=== PATIENT | male | born 1945 | race Two or more races ===

== ENCOUNTER 2022-05-31 05:35 | Inpatient (IN) | payer MEDICARE, MEDICAID ==
[~2022-05-31] VITALS: Ht 188 cm; Wt 106.1 kg
[2022-05-31 06:54] LABS: Basophils # (auto) 0 10 ^3/uL (0-0.2); Basophils % (auto) 0.5 % (0.0-2.0); Eosinophils # (auto) 0 10 ^3/uL (0-0.8); Hematocrit 39.3 % (41.0-53.0); Hemoglobin 12.5 g/dL (13.5-17.5); Lymphocytes # (auto) 0.6 10 ^3/uL (0.4-5.4); Lymphocytes % (auto) 8.1 % (10.0-50.0); Mean Corpuscular Hemoglobin 28.8 pg (28.0-32.0); Mean Corpuscular Hgb Conc. 31.8 g/dL (32.0-36.0); Mean Corpuscular Volume 90.6 fL (80.0-100.0); Monocytes # (auto) 0.5 10 ^3/uL (0-1.3); Monocytes % (auto) 6.6 % (0.0-12.0); Neutrophils # (auto) 6.5 10 ^3/uL (1.6-8.6); Neutrophils % (auto) 84.8 % (37.0-80.0); Nucleated Red Blood Cells % 0.1 %; Red Blood Cells 4.33 10^6/uL (4.5-5.90); Red Cell Distribution Width 20.2 % (11.8-14.3); White Blood Cell 7.6 10^3/uL (4.4-10.8)
[2022-05-31 07:32] LABS: Calcium 8.5 mg/dL (8.5-10.1)
[2022-05-31 07:38] LABS: Albumin 3.4 g/dL (3.4-5.0); BUN/Creatinine Ratio 39.4; Total Protein 7.7 g/dL (6.4-8.2)
[2022-05-31 07:45] LABS: Potassium 6.9 mmol/L (3.5-5.1)
[2022-05-31] MEDS ORDERED: NITROGLYCERIN 50MG/250ML 250 ML IV ONE (09:00)
[2022-05-31] MEDS ORDERED: InsuLIN REG 1unit/0.01ml Soln (100units/ml) IV ONE ×2 (09:00→16:15)
[2022-05-31] MEDS ORDERED: FUROSEMIDE 100 MG/10ML VIAL IV ONE ×2 (09:00→16:15)
[2022-05-31] MEDS ORDERED: DEXTROSE (50%) 50ML SYRG IV ONE ×2 (09:00→16:15)
[2022-05-31] MEDS ORDERED: SODIUM BICARBONATE 8.4% INJ 50ML SYRINGE IV ONE (09:00)
[2022-05-31] MEDS ORDERED: SODIUM ZIRCONIUM CYCL 10 GM PAK PO ONE (09:00)
[2022-05-31] MEDS ORDERED: CALCIUM GLUC 1,000mg/50ml-NS 50 ML IV ONE ×3 (09:00→22:30)
[2022-05-31] MEDS: NOREPINEPHRINE 8 MG/250ML KIT 250 ML IV SCH (09:47)
[2022-05-31] MEDS: MORPHINE SULFATE 4 MG/ML SYR/VIAL IV SCH ×3 (10:00→17:26)
[2022-05-31] MEDS ORDERED: SODIUM CHL 0.9% 1000 ML BAG XX ONE (10:15)
[2022-05-31 10:40] VITALS: BP 103/71
[2022-05-31] MEDS ORDERED: MORPHINE SULFATE INJ 2 MG/ml SYRG IV PRN (11:30)
[2022-05-31] MEDS ORDERED: NITROGLYCERIN 0.4 MG SL TAB SL PRN (11:30)
[2022-05-31] MEDS ORDERED: HEPARIN SODIUM (PORCINE) 5000 UNITS/ML 1ML VIAL SC ONE (11:30)
[2022-05-31 11:56] LABS: % Iron Saturation 15.5 % (20-55)
[2022-05-31 12:00] VITALS: BP 122/68
[2022-05-31] MEDS ORDERED: methylPREDNISolone SOD SUCC 125 MG/2 ML VL IV ONE (12:15)
[2022-05-31] MEDS ORDERED: IPRATROPIUM BROM 0.5 MG/2.5ML INH SOL NEB PRN (12:15)
[2022-05-31] MEDS ORDERED: ALBUTEROL SULF 2.5 MG/0.5ML(0.5%) NEB SOLN NEB PRN (12:15)
[2022-05-31 13:12] LABS: Cholesterol 144 mg/dL (< 200); HDL Cholesterol 54 mg/dL (40-59); LDL Cholesterol 87 mg/dL (< 100); Triglycerides 54 mg/dL (< 150)
[2022-05-31 13:26] VITALS: BP 122/68
[2022-05-31] MEDS ORDERED: ALBUTEROL SULF 2.5 MG/0.5ML(0.5%) NEB SOLN NEB ONE (16:15)
[2022-05-31] MEDS ORDERED: SODIUM BICARBONATE 8.4 % INJ 50ML VIAL IV ONE ×2 (16:15→22:30)
[2022-05-31 17:10] LABS: Potassium 6.1 mmol/L (3.5-5.1)
[2022-05-31] MEDS: SODIUM ZIRCONIUM CYCL 10 GM PAK PO SCH (17:24)
[2022-05-31 19:05] LABS: BUN/Creatinine Ratio 38.2; Calcium 8.3 mg/dL (8.5-10.1)
[2022-05-31] MEDS: ALBUTEROL SULF 2.5 MG/0.5ML(0.5%) NEB SOLN NEB SCH (19:39)
[2022-05-31] MEDS: IPRATROPIUM BROM 0.5 MG/2.5ML INH SOL NEB SCH (19:40)
[2022-05-31 20:59] LABS: Urine Bacteria FEW /hpf (None Seen); Urine Blood TRACE /uL (Negative); Urine Hyaline Cast FEW /lpf (0 - 2); Urine Specific Gravity 1.007 (1.001-1.035); Urine WBC 5 /hpf (0 - 3)
[2022-05-31] MEDS ORDERED: EPOETIN ALFA-EPBX 10,000 UNIT/1ML VIAL SC ONE (21:00)
[2022-06-01] VITALS (17 sets, daily range): BP systolic 99–135; BP diastolic 60–93
[2022-06-01] MEDS: DOXYCYCLINE 100 MG TAB/CAP PO SCH ×3 (01:42→22:32)
[2022-06-01] MEDS: MORPHINE SULFATE 4 MG/ML SYR/VIAL IV SCH ×5 (02:00→18:00)
[2022-06-01] MEDS: SODIUM ZIRCONIUM CYCL 10 GM PAK PO SCH ×4 (02:02→22:32)
[2022-06-01] MEDS: HEPARIN SODIUM (PORCINE) 5000 UNITS/ML 1ML VIAL SC SCH ×2 (02:45→10:00)
[2022-06-01 05:21] LABS: Basophils # (auto) 0 10 ^3/uL (0-0.2); Basophils % (auto) 0.1 % (0.0-2.0); Eosinophils # (auto) 0 10 ^3/uL (0-0.8); Hematocrit 29.6 % (41.0-53.0); Hemoglobin 9.9 g/dL (13.5-17.5); Lymphocytes # (auto) 0.3 10 ^3/uL (0.4-5.4); Lymphocytes % (auto) 9.5 % (10.0-50.0); Mean Corpuscular Hemoglobin 29.8 pg (28.0-32.0); Mean Corpuscular Hgb Conc. 33.4 g/dL (32.0-36.0); Mean Corpuscular Volume 89.3 fL (80.0-100.0); Monocytes # (auto) 0.1 10 ^3/uL (0-1.3); Monocytes % (auto) 1.4 % (0.0-12.0); Neutrophils # (auto) 3.2 10 ^3/uL (1.6-8.6); Nucleated Red Blood Cells % 0.1 %; Red Blood Cells 3.31 10^6/uL (4.5-5.90); Red Cell Distribution Width 19.9 % (11.8-14.3); White Blood Cell 3.5 10^3/uL (4.4-10.8)
[2022-06-01 05:38] LABS: Albumin 2.6 g/dL (3.4-5.0); Calcium 7.8 mg/dL (8.5-10.1); Potassium 4.9 mmol/L (3.5-5.1)
[2022-06-01 05:42] LABS: BUN/Creatinine Ratio 36.4; Bilirubin, Total 0.7 mg/dL (0.2-1.0); Phosphorus 5.3 mg/dL (2.5-4.90); Total Protein 6.2 g/dL (6.4-8.2)
[2022-06-01] MEDS: ALBUTEROL SULF 2.5 MG/0.5ML(0.5%) NEB SOLN NEB SCH ×3 (06:14→18:27)
[2022-06-01] MEDS: IPRATROPIUM BROM 0.5 MG/2.5ML INH SOL NEB SCH ×2 (06:14→12:00)
[2022-06-01] MEDS ORDERED: SODIUM CHL 0.9% 1000 ML BAG XX ONE (07:00)
[2022-06-01] MEDS: DOPamine 1600MCG/ML D5W 250 ML IV SCH (08:57)
[2022-06-01] MEDS: NOREPINEPHRINE 8 MG/250ML KIT 250 ML IV SCH (09:30)
[2022-06-01] MEDS ORDERED: ATO40T PO (09:47)
[2022-06-01] MEDS ORDERED: BUME1TAB25 PO (09:52)
[2022-06-01] MEDS ORDERED: CARV3.1240 PO (09:54)
[2022-06-01] MEDS ORDERED: CLON0.1D TD (09:58)
[2022-06-01] MEDS ORDERED: CRAN425C2 OR (09:59)
[2022-06-01] MEDS ORDERED: DOCU100T15 PO (10:01)
[2022-06-01] MEDS ORDERED: APIX5TAB PO (10:02)
[2022-06-01] MEDS ORDERED: FERR-20 PO (10:04)
[2022-06-01] MEDS ORDERED: INSU100I43 SC (10:06)
[2022-06-01] MEDS ORDERED: INSLANTI SC (10:09)
[2022-06-01] MEDS ORDERED: LEVO25TA6 PO (10:10)
[2022-06-01] MEDS ORDERED: MAGNSUS48 PO (10:12)
[2022-06-01] MEDS ORDERED: MULTTAB75 PO (10:13)
[2022-06-01] MEDS ORDERED: HYDR-4902 PO (10:15)
[2022-06-01] MEDS ORDERED: OMEP20TA PO (10:16)
[2022-06-01] MEDS ORDERED: POTA10TA51 PO (10:18)
[2022-06-01] MEDS ORDERED: LACT1CAP14 PO (10:19)
[2022-06-01] MEDS ORDERED: SENN-36 PO (10:20)
[2022-06-01] MEDS ORDERED: SODI650T PO (10:22)
[2022-06-01] MEDS ORDERED: ASCO500C49 PO (10:23)
[2022-06-01] MEDS ORDERED: VITA400T4 PO (10:25)
[2022-06-01] MEDS ORDERED: ZINC220C8 PO (10:26)
[2022-06-01] MEDS ORDERED: BISA10SU5 RE (10:31)
[2022-06-01] MEDS ORDERED: DESMOPRESSIN INJECTION 20 MCG in SODIUM CHL 0.9% 50 ML IV ONE (10:45)
[2022-06-01] MEDS ORDERED: DEXTROSE (50%) 50ML SYRG IV PRN (10:45)
[2022-06-01] MEDS ORDERED: LEVOTHYROXINE SODIUM 25 MCG TAB PO ONE (10:45)
[2022-06-01] MEDS ORDERED: PANTOPRAZOLE 40 MG TAB PO ONE (10:45)
[2022-06-01] MEDS: InsuLIN REG 1unit/0.01ml Soln (100units/ml) SC SCH ×2 (12:00→17:00)
[2022-06-01] MEDS: ACCU-CHEK COMFORT CURVE STRIP VI SCH ×2 (12:00→17:00)
[2022-06-01] MEDS ORDERED: EPOETIN ALFA-EPBX 10,000 UNIT/1ML VIAL SC ONE (13:30)
[2022-06-01 13:37] LABS: Hepatitis A Ab IgM Negative; Hepatitis B Core IgM Negative; Hepatitis C Antibody Negative (Negative)
[2022-06-01] MEDS ORDERED: ONDANSETRON HCL 4 MG/2 ML VIAL IV PRN (14:45)
[2022-06-01] MEDS ORDERED: FUROSEMIDE 40 MG/4 ML VIAL IV ONE (14:45)
[2022-06-01 16:15] LABS: Hematocrit 39.9 % (41.0-53.0)
[2022-06-01 16:26] LABS: INR 1.25 (0.9-1.15); Partial Thromboplastin Time 26.4 sec (24.6-33.4)
[2022-06-01 16:27] LABS: Hemoglobin 12.6 g/dL (13.5-17.5)
[2022-06-02] VITALS (30 sets, daily range): BP systolic 90–131; BP diastolic 56–73
[2022-06-02] MEDS: ACCU-CHEK COMFORT CURVE STRIP VI SCH ×5 (00:25→23:13)
[2022-06-02] MEDS: MORPHINE SULFATE 4 MG/ML SYR/VIAL IV SCH ×5 (02:00→18:00)
[2022-06-02] MEDS: InsuLIN REG 1unit/0.01ml Soln (100units/ml) SC SCH ×5 (06:00→23:13)
[2022-06-02] MEDS: IPRATROPIUM BROM 0.5 MG/2.5ML INH SOL NEB SCH ×3 (06:10→18:24)
[2022-06-02] MEDS: ALBUTEROL SULF 2.5 MG/0.5ML(0.5%) NEB SOLN NEB SCH ×3 (06:10→18:24)
[2022-06-02] MEDS: DOPamine 1600MCG/ML D5W 250 ML IV SCH ×2 (06:30→12:24)
[2022-06-02 07:38] LABS: Basophils # (auto) 0 10 ^3/uL (0-0.2); Basophils % (auto) 0.3 % (0.0-2.0); Eosinophils # (auto) 0 10 ^3/uL (0-0.8); Eosinophils % (auto) 0.1 % (0.0-7.0); Hematocrit 32.9 % (41.0-53.0); Hemoglobin 10.5 g/dL (13.5-17.5); Lymphocytes # (auto) 0.7 10 ^3/uL (0.4-5.4); Lymphocytes % (auto) 7.4 % (10.0-50.0); Mean Corpuscular Hemoglobin 28.9 pg (28.0-32.0); Mean Corpuscular Hgb Conc. 31.9 g/dL (32.0-36.0); Mean Corpuscular Volume 90.5 fL (80.0-100.0); Monocytes # (auto) 0.6 10 ^3/uL (0-1.3); Monocytes % (auto) 6.8 % (0.0-12.0); Neutrophils # (auto) 7.8 10 ^3/uL (1.6-8.6); Neutrophils % (auto) 85.4 % (37.0-80.0); Red Blood Cells 3.63 10^6/uL (4.5-5.90); Red Cell Distribution Width 19.9 % (11.8-14.3); White Blood Cell 9.2 10^3/uL (4.4-10.8)
[2022-06-02 07:58] LABS: INR 1.2 (0.9-1.15); Partial Thromboplastin Time 29.5 sec (24.6-33.4)
[2022-06-02 08:00] LABS: Albumin 2.9 g/dL (3.4-5.0); Potassium 4.4 mmol/L (3.5-5.1)
[2022-06-02 08:01] LABS: % Iron Saturation 14.9 % (20-55)
[2022-06-02 08:03] LABS: BUN/Creatinine Ratio 32.4; Total Protein 6.6 g/dL (6.4-8.2)
[2022-06-02] MEDS: LEVOTHYROXINE SODIUM 25 MCG TAB PO SCH (08:52)
[2022-06-02] MEDS: SODIUM ZIRCONIUM CYCL 10 GM PAK PO SCH ×3 (08:52→22:55)
[2022-06-02] MEDS ORDERED: DESMOPRESSIN INJECTION 20 MCG in SODIUM CHL 0.9% 50 ML IV ONE (10:00)
[2022-06-02] MEDS: PANTOPRAZOLE 40 MG TAB PO SCH (10:00)
[2022-06-02] MEDS ORDERED: FUROSEMIDE 100 MG/10ML VIAL IV SCH (10:00)
[2022-06-02] MEDS: DOXYCYCLINE 100 MG TAB/CAP PO SCH ×2 (10:00→23:13)
[2022-06-02] MEDS ORDERED: LIDOCAINE 2% (LOCAL ANESTH.) PF 5ml SDV ONE (11:18)
[2022-06-02] MEDS: SODIUM FERR GLUC 62.5MG/5ML 125 MG in SODIUM CHL 0.9% 100 ML IV SCH (15:19)
[2022-06-02] MEDS: FUROSEMIDE 100 MG/10ML VIAL IV SCH ×2 (15:20→22:55)
[2022-06-03] VITALS (26 sets, daily range): BP systolic 101–128; BP diastolic 59–77
[2022-06-03] MEDS: MORPHINE SULFATE 4 MG/ML SYR/VIAL IV SCH ×2 (02:00→05:26)
[2022-06-03 04:54] LABS: Basophils # (auto) 0 10 ^3/uL (0-0.2); Basophils % (auto) 0.2 % (0.0-2.0); Eosinophils # (auto) 0 10 ^3/uL (0-0.8); Eosinophils % (auto) 0.2 % (0.0-7.0); Hematocrit 29.1 % (41.0-53.0); Hemoglobin 9.5 g/dL (13.5-17.5); Lymphocytes # (auto) 1.2 10 ^3/uL (0.4-5.4); Lymphocytes % (auto) 15.8 % (10.0-50.0); Mean Corpuscular Hemoglobin 28.9 pg (28.0-32.0); Mean Corpuscular Hgb Conc. 32.6 g/dL (32.0-36.0); Mean Corpuscular Volume 88.7 fL (80.0-100.0); Monocytes # (auto) 0.7 10 ^3/uL (0-1.3); Monocytes % (auto) 9.9 % (0.0-12.0); Neutrophils # (auto) 5.6 10 ^3/uL (1.6-8.6); Neutrophils % (auto) 73.9 % (37.0-80.0); Red Blood Cells 3.28 10^6/uL (4.5-5.90); Red Cell Distribution Width 19.8 % (11.8-14.3); White Blood Cell 7.5 10^3/uL (4.4-10.8)
[2022-06-03 05:04] LABS: Albumin 2.7 g/dL (3.4-5.0); Calcium 7.4 mg/dL (8.5-10.1); Potassium 3.7 mmol/L (3.5-5.1)
[2022-06-03 05:08] LABS: Bilirubin, Total 0.9 mg/dL (0.2-1.0)
[2022-06-03] MEDS: ACCU-CHEK COMFORT CURVE STRIP VI SCH ×4 (05:24→23:37)
[2022-06-03] MEDS: InsuLIN REG 1unit/0.01ml Soln (100units/ml) SC SCH ×4 (05:25→23:37)
[2022-06-03] MEDS: SODIUM ZIRCONIUM CYCL 10 GM PAK PO SCH (05:25)
[2022-06-03] MEDS: FUROSEMIDE 100 MG/10ML VIAL IV SCH ×2 (05:26→23:12)
[2022-06-03] MEDS: LEVOTHYROXINE SODIUM 25 MCG TAB PO SCH (06:36)
[2022-06-03] MEDS: DOXYCYCLINE 100 MG TAB/CAP PO SCH ×2 (10:00→23:12)
[2022-06-03] MEDS: PANTOPRAZOLE 40 MG TAB PO SCH (10:00)
[2022-06-03] MEDS ORDERED: MORPHINE SULFATE INJ 2 MG/ml SYRG IV PRN (10:30)
[2022-06-03] MEDS ORDERED: HYDROcodone-ACET 5/325MG TAB PO PRN (10:30)
[2022-06-03 11:15] LABS: Basophils # (auto) 0 10 ^3/uL (0-0.2); Basophils % (auto) 0.2 % (0.0-2.0); Eosinophils # (auto) 0 10 ^3/uL (0-0.8); Eosinophils % (auto) 0.2 % (0.0-7.0); Hematocrit 30.6 % (41.0-53.0); Hemoglobin 9.8 g/dL (13.5-17.5); Lymphocytes # (auto) 0.6 10 ^3/uL (0.4-5.4); Lymphocytes % (auto) 9.4 % (10.0-50.0); Mean Corpuscular Hemoglobin 28.7 pg (28.0-32.0); Mean Corpuscular Hgb Conc. 31.9 g/dL (32.0-36.0); Monocytes # (auto) 0.6 10 ^3/uL (0-1.3); Monocytes % (auto) 8.3 % (0.0-12.0); Neutrophils # (auto) 5.6 10 ^3/uL (1.6-8.6); Neutrophils % (auto) 81.9 % (37.0-80.0); White Blood Cell 6.8 10^3/uL (4.4-10.8)
[2022-06-03 11:16] LABS: Red Cell Distribution Width 20.2 % (11.8-14.3)
[2022-06-03] MEDS: SODIUM FERR GLUC 62.5MG/5ML 125 MG in SODIUM CHL 0.9% 100 ML IV SCH (12:30)
[2022-06-03] MEDS: IPRATROPIUM BROM 0.5 MG/2.5ML INH SOL NEB SCH (19:05)
[2022-06-03] MEDS: ALBUTEROL SULF 2.5 MG/0.5ML(0.5%) NEB SOLN NEB SCH (19:05)
[2022-06-03] MEDS: DOPamine 1600MCG/ML D5W 250 ML IV SCH (23:33)
[2022-06-04 05:00] VITALS: BP 119/68
[2022-06-04] MEDS: InsuLIN REG 1unit/0.01ml Soln (100units/ml) SC SCH ×4 (06:00→22:53)
[2022-06-04] MEDS: ACCU-CHEK COMFORT CURVE STRIP VI SCH ×4 (06:03→22:39)
[2022-06-04] MEDS: LEVOTHYROXINE SODIUM 25 MCG TAB PO SCH (06:05)
[2022-06-04] MEDS: ALBUTEROL SULF 2.5 MG/0.5ML(0.5%) NEB SOLN NEB SCH ×3 (06:14→18:07)
[2022-06-04] MEDS: IPRATROPIUM BROM 0.5 MG/2.5ML INH SOL NEB SCH ×3 (06:14→18:07)
[2022-06-04 06:41] LABS: BUN/Creatinine Ratio 30.8; Calcium 7.9 mg/dL (8.5-10.1); Potassium 3.5 mmol/L (3.5-5.1)
[2022-06-04 09:00] VITALS: BP 131/70
[2022-06-04] MEDS ORDERED: LEV25T PO (10:08)
[2022-06-04] MEDS: PANTOPRAZOLE 40 MG TAB PO SCH (10:08)
[2022-06-04] MEDS: DOXYCYCLINE 100 MG TAB/CAP PO SCH ×2 (10:08→22:39)
[2022-06-04] MEDS ORDERED: DOX100T PO (10:08)
[2022-06-04] MEDS: FUROSEMIDE 100 MG/10ML VIAL IV SCH ×2 (10:09→22:39)
[2022-06-04] MEDS: SODIUM FERR GLUC 62.5MG/5ML 125 MG in SODIUM CHL 0.9% 100 ML IV SCH (12:19)
[2022-06-04 13:00] VITALS: BP 115/71
[2022-06-04] MEDS: ERTAPENEM SOD INJ 1 GM in SODIUM CHL 0.9% 50 ML IV ONE ×2 (15:28→15:58)
[2022-06-04 17:00] VITALS: BP 107/69
[2022-06-04 22:00] VITALS: BP 101/68
[2022-06-05] VITALS (7 sets, daily range): BP systolic 101–112; BP diastolic 62–71
[2022-06-05] MEDS: ACCU-CHEK COMFORT CURVE STRIP VI SCH ×3 (05:27→17:57)
[2022-06-05] MEDS: LEVOTHYROXINE SODIUM 25 MCG TAB PO SCH (05:28)
[2022-06-05] MEDS: InsuLIN REG 1unit/0.01ml Soln (100units/ml) SC SCH ×3 (05:32→17:58)
[2022-06-05 06:20] LABS: BUN/Creatinine Ratio 28.2; Calcium 7.6 mg/dL (8.5-10.1); Potassium 3.4 mmol/L (3.5-5.1)
[2022-06-05] MEDS: ALBUTEROL SULF 2.5 MG/0.5ML(0.5%) NEB SOLN NEB SCH ×3 (07:16→19:15)
[2022-06-05] MEDS: IPRATROPIUM BROM 0.5 MG/2.5ML INH SOL NEB SCH ×3 (07:16→19:15)
[2022-06-05] MEDS ORDERED: POTASSIUM CHL 20 Meq TABLET PO ONE (10:15)
[2022-06-05] MEDS: ERTAPENEM SOD INJ 1 GM in SODIUM CHL 0.9% 50 ML IV SCH (11:57)
[2022-06-05] MEDS: FUROSEMIDE 100 MG/10ML VIAL IV SCH ×2 (11:58→22:44)
[2022-06-05] MEDS: PANTOPRAZOLE 40 MG TAB PO SCH (11:58)
[2022-06-05] MEDS: DOXYCYCLINE 100 MG TAB/CAP PO SCH ×2 (11:58→22:44)
[2022-06-05] MEDS: SODIUM FERR GLUC 62.5MG/5ML 125 MG in SODIUM CHL 0.9% 100 ML IV SCH (17:02)
[2022-06-06 05:00] VITALS: BP 120/68
[2022-06-06] MEDS: InsuLIN REG 1unit/0.01ml Soln (100units/ml) SC SCH ×3 (06:00→12:03)
[2022-06-06 06:01] LABS: BUN/Creatinine Ratio 24.3; Calcium 7.7 mg/dL (8.5-10.1); Potassium 3.6 mmol/L (3.5-5.1)
[2022-06-06] MEDS: ACCU-CHEK COMFORT CURVE STRIP VI SCH ×3 (06:35→11:45)
[2022-06-06] MEDS: LEVOTHYROXINE SODIUM 25 MCG TAB PO SCH (06:38)
[2022-06-06] MEDS: IPRATROPIUM BROM 0.5 MG/2.5ML INH SOL NEB SCH ×3 (06:47→12:01)
[2022-06-06] MEDS: ALBUTEROL SULF 2.5 MG/0.5ML(0.5%) NEB SOLN NEB SCH ×3 (06:47→12:01)
[2022-06-06 09:00] VITALS: BP 128/79
[2022-06-06] MEDS: FUROSEMIDE 100 MG/10ML VIAL IV SCH (10:20)
[2022-06-06] MEDS: PANTOPRAZOLE 40 MG TAB PO SCH (10:22)
[2022-06-06] MEDS: DOXYCYCLINE 100 MG TAB/CAP PO SCH (10:22)
[2022-06-06] MEDS: ERTAPENEM SOD INJ 1 GM in SODIUM CHL 0.9% 50 ML IV SCH (10:24)
[2022-06-06] MEDS: SODIUM FERR GLUC 62.5MG/5ML 125 MG in SODIUM CHL 0.9% 100 ML IV SCH (12:00)
[2022-06-06 13:00] VITALS: BP 137/88
== END 2022-06-06 13:53 | disposition home or self-care (01) | DRG 291 ==
LOC: EDBD 05:35 → ER 05:35 → ICU WEST 11:20 → OVERFLOW 15:28 → DOU IN ICU 06-01 05:45 → TELE-CENTR 06-03 08:03 → CENTRAL 06-05 06:50
PROVIDERS: ADMIT Registered Nurse; ATTEND Internal Medicine
PROC: 5A1D70Z Performance of Urinary Filtration, Intermittent, Less than 6 Hours Per Day (ICD-10-PCS; 2022-05-31)
PROC: 06HM33Z Insertion of Infusion Device into Right Femoral Vein, Percutaneous Approach (ICD-10-PCS; 2022-05-31)
PROC: 5A09357 Assistance with Respiratory Ventilation, Less than 24 Consecutive Hours, Continuous Positive Airway Pressure (ICD-10-PCS; 2022-05-31)
PROC: 5A1D70Z Performance of Urinary Filtration, Intermittent, Less than 6 Hours Per Day (ICD-10-PCS; principal; 2022-06-01)
PROC: 5A09357 Assistance with Respiratory Ventilation, Less than 24 Consecutive Hours, Continuous Positive Airway Pressure (ICD-10-PCS; 2022-06-01)
PROC: 05HB33Z Insertion of Infusion Device into Right Basilic Vein, Percutaneous Approach (ICD-10-PCS; 2022-06-01)
PROC: B54MZZA Ultrasonography of Right Upper Extremity Veins, Guidance (ICD-10-PCS; 2022-06-01)
DX: I13.2 Hypertensive heart and chronic kidney disease with heart failure and with stage 5 chronic kidney disease, or end stage renal disease (principal); I50.21 Acute systolic (congestive) heart failure; J18.9 Pneumonia, unspecified organism; N17.0 Acute kidney failure with tubular necrosis; J96.21 Acute and chronic respiratory failure with hypoxia; J96.22 Acute and chronic respiratory failure with hypercapnia; N18.6 End stage renal disease; J98.11 Atelectasis; E87.2 Acidosis; E87.5 Hyperkalemia; D69.6 Thrombocytopenia, unspecified; E66.01 Morbid (severe) obesity due to excess calories; R79.89 Other specified abnormal findings of blood chemistry; E78.5 Hyperlipidemia, unspecified; I95.9 Hypotension, unspecified; D50.0 Iron deficiency anemia secondary to blood loss (chronic); E03.9 Hypothyroidism, unspecified; R58 Hemorrhage, not elsewhere classified; E11.51 Type 2 diabetes mellitus with diabetic peripheral angiopathy without gangrene; I08.1 Rheumatic disorders of both mitral and tricuspid valves; I25.10 Atherosclerotic heart disease of native coronary artery without angina pectoris; E11.22 Type 2 diabetes mellitus with diabetic chronic kidney disease; M10.9 Gout, unspecified; R74.8 Abnormal levels of other serum enzymes; Z20.822 Contact with and (suspected) exposure to COVID-19; S81.802A Unspecified open wound, left lower leg, initial encounter; X58.XXXA Exposure to other specified factors, initial encounter; Y93.89 Activity, other specified; Y92.89 Other specified places as the place of occurrence of the external cause; Y99.8 Other external cause status
CPT/HCPCS: 36415; 36556; 36600; 71045; 80048; 80053; 80061; 80074; 81001; 82728; 82805; 82962; 83036; 83540; 83550; 83605; 83880; 84100; 84132; 84443; 84484; 85014; 85018; 85025; 85610; 85730; 86850; 86900; 86901; 87040; 87077; 87081; 87186; 87205; 87340; 90935; 93005; 93306; 94640; 94660; 96365; 96375; 97110; 97116; 97163; 97530; 99291; G0378; J1335; J1642; J1815; J2001; J2405